=== PATIENT | male | born 1955 | race Caucasian/White ===

== ENCOUNTER 2024-10-09 12:15 | Observation (INO) | payer MEDICARE, SELFPAY ==
[2024-10-09] VITALS (10 sets, daily range): BP systolic 128–175; BP diastolic 62–95; BMI 40.6; BMI 40.5
[2024-10-09 04:01] LABS: % Basophils 0.4 % (0-2); % Eosinophils 2.5 % (0-6); % Immature Granulocytes 0.4 % (0-0.5); % Lymphocytes 18.9 % (20.5-51.1); % Monocytes 6.4 % (1.7-9.3); % Neutrophils 71.4 % (42.2-75.2); Absolute Basophils 0.1 10^3/uL (0-0.2); Absolute Eosinophils 0.4 10^3/uL (0-0.7); Absolute Immature Granulocytes 0.1 10^3/uL (0-0.05); Absolute Lymphocytes 2.7 10^3/uL (1.2-3.4); Absolute Monocytes 0.9 10^3/uL (0.1-0.6); Absolute Neutrophils 10.1 10^3/uL (1.4-6.5); Hematocrit 43.7 % (39.0-52.0); Hemoglobin 15.8 g/dL (13.0-18.0); Mean Corp Hgb Conc. 36.2 g/dL (33.0-37.0); Mean Corpuscular Volume 85.7 fL (80.0-94.0); Mean Platelet Volume 9.1 fL (7.4-10.4); Nucleated Red Blood Cells % 0 % (-); Platelet Count 298 10^3/uL (130-400); Red Cell Dist. Width 12.3 % (11.5-14.5); White Blood Cell Count 14.2 10^3/uL (4.8-10.8)
[2024-10-09 04:25] LABS: ALT (SGPT) 45 U/L (0-50); AST (SGOT) 26 U/L (17-59); Albumin 4.7 g/dl (3.5-5.0); Alkaline Phosphatase 106 U/L (38-126); Blood Urea Nitrogen 21 mg/dl (9-20); Calcium 9.8 mg/dl (8.4-10.2); Carbon Dioxide 23 mmol/L (22-30); Chloride 105 mmol/L (98-107); Glucose 198 mg/dl (70-99); Lipase 88 U/L (23-300); Potassium 4.3 mmol/L (3.5-5.1); Sodium 139 mmol/L (135-145); Total Bilirubin 0.5 mg/dl (0.2-1.3); Total Protein 7.3 g/dl (6.3-8.2); eGFR > 60.00
[2024-10-09] MEDS: DILAUDID 1 MG IV ×3 (04:57→09:38)
[2024-10-09] MEDS: ZOFRAN 4 MG IV ×2 (05:00→08:45)
--- NOTE | 2024-10-09 07:06 | ED.GENMED ---
History of Present Illness
General
Chief Complaint: Abdominal Pain
Source: patient and records
Exam Limitations: none
Time Seen by Provider: 10/09/24 06:56
History of Present Illness
History of Present Illness:
69yoM with a history of type 2 diabetes, hypertension, hyperlipidemia, GERD presenting for evaluation of abdominal pain. Patient reports having a 'twinge' of pain yesterday with a sour stomach during the day. He started having worsening pain
around 8pm. Pain is described as a severe pressure in his epigastric region. He started retching upon arrival to the ED. Pain radiates to the back. Patient believes his symptoms are from his gallbladder. He was hospitalized in June 2021 with
choledocholithiasis and underwent ERCP. Cholecystectomy was recommended at that time which he refused. Symptoms are almost identical to last time although the pain is more severe. Patient denies any chest pain, shortness of breath, diarrhea,
constipation.
Past History
Past History
ED Past Medical History: GERD, HTN and NIDDM
Social History
Tobacco: Non-smoker
Alcohol: None
Drug: None
Personal: Single
Living: alone
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
Phy Exam
Physical Exam
Physical Exam:
Writhing around on stretcher, retching, diaphoretic
General Physical Exam
General Presentation: moderate distress
General Skin: warm and diaphoretic
General Habitus: normal and obese
General Mental: alert
ENT Exam
ENT Exam: normocephalic
Cardiovascular Exam
Cardiovascular Exam: regular rate/rhythm
Pulmonary Exam
Pulmonary Exam: lungs clear, no respiratory distress, no rales, no crackles, no rhonchi and no wheezing
Gastrointestinal Exam
Gastrointestinal Exam: soft, non distended and other (+Epigastric tenderness. No rebound or guarding. )
Neurological Exam
Neurological Exam: alert
Cecilio Coma Scale
Eye Opening: Spontaneous
Verbal Response: Oriented
Motor Response: Obeys Commands
GCS Total Score: 15
Skin Exam
Skin Exam: normal color and warm/dry
Psychiatric Exam
Psychiatric Exam: anxious
Course
Orders/Labs/Results
Orders:
Orders
10/09/24 03:56
Complete Blood Count/With Diff Urgent
Comprehensive Metabolic Panel Urgent
Lipase Urgent
10/09/24 04:34
Ondansetron Injectable [Zofran] 4 mg .ROUTE .STK-MED ONE
10/09/24 04:51
HYDROmorphone [Dilaudid] 1 mg .ROUTE .STK-MED ONE
10/09/24 04:53
HYDROmorphone [Dilaudid] 1 mg IV NOW STA
10/09/24 04:54
US Abdomen Complete/Upper Urgent
Comment:
Reason For Exam: gallbladder
10/09/24 05:00
Ondansetron Injectable [Zofran] 4 mg IV NOW STA
10/09/24 07:06
Electrocardiogram (*1) Urgent
Reason for Study: Abdominal Pain
CT Chest/abd/pelvis Angio W/wo Urgent
Comment:
Reason For Exam: upper abd pain radiating to back
EKG- Treatment ONCE
10/09/24 07:12
HYDROmorphone [Dilaudid] 1 mg IV NOW STA
10/09/24 07:13
0.9% Sodium Chloride 1000 ml [Nss] 1,000 ml IV BOLUS
10/09/24 07:28
Lactate Level [Lactic Acid] Urgent
Troponin I Urgent
10/09/24 07:30
Urinalysis Reflex To Culture Urgent
Date Specimen was Collected: 10/09/24
Time Specimen was Collected: 07:28
Urine Microscopic Reflex Cult Urgent
10/09/24 08:37
Ondansetron Injectable [Zofran] 4 mg IV NOW STA
10/09/24 09:23
HYDROmorphone [Dilaudid] 1 mg IV NOW STA
Ketorolac [Toradol] 15 mg IV NOW STA
Abnormal Lab Results
10/09/24 10/09/24 10/09/24
03:56 07:28 07:30
WBC 14.2 H 10^3/uL
(4.8-10.8)
Abs Immat Gran (auto) 0.1 H 10^3/uL
(0-0.05)
Absolute Neuts (auto) 10.1 H 10^3/uL
(1.4-6.5)
Absolute Monos (auto) 0.9 H 10^3/uL
(0.1-0.6)
Lymphocytes % 18.9 L %
(20.5-51.1)
BUN 21 H mg/dl
(9-20)
Glucose 198 H mg/dl
(70-99)
Lactic Acid 3.1 H mmol/L
(0.7-2.0)
Urine Ketones 2+ A
(Negative)
Ur Occult Blood Reflex 1+ A
(Negative)
Urine Bacteria (Reflex) Few A
(Negative)
Urine Albumin (Reflex) 2+ A
(Neg - Trace)
10/09/24 03:56
10/09/24 03:56
Vital Signs
Initial and Last Documented VS:
Initial Vital Signs
Temp Pulse Resp BP Pulse Ox
98.6 F 87 18 158/95 98
10/09/24 03:49 10/09/24 03:49 10/09/24 03:49 10/09/24 03:49 10/09/24 03:49
Last Documented Vital Signs
Temp Pulse Resp BP Pulse Ox
98.6 F 74 16 159/62 96
10/09/24 03:49 10/09/24 08:29 10/09/24 08:29 10/09/24 10:00 10/09/24 10:00
MDM/Problems Addressed
Differential Diagnosis Includes:
69yoM here with epigastric abd pain that started last night. Hx of choledocholithiasis in 2021. Never followed up for a cholecystectomy. He is hypertensive with otherwise stable. Patient is writhing around on exam and diaphoretic complaining of
severe pain. Differential diagnosis includes but is not limited to: Cholecystitis, pancreatitis, PUD, gastroparesis, aortic dissection, ACS
Initial ED plan: Workup initiated by nursing staff. Patient underwent upper abdominal ultrasound which shows a solitary gallstone without signs of cholecystitis. White count is 14.2 which may be reactive secondary to vomiting. LFTs and lipase
within normal limits. Will check troponin/EKG, lactate, and CTA dissection study. IV Dilaudid for pain.
*Pulse Oximetry
SaO2: 98
Oxygen Mode of Delivery: Room air
Patient hypoxic: no (98%)
*EKG
Interpreted by ED Provider?: Yes
EKG Intrepretation Date: 10/09/24
Heart Rate: 74
Rate: normal
Rhythm: sinus
[place]: normal axis
Interval: normal interval
QRS Pattern: normal QRS
Ischemia: no ischemia
*Critical Care Note
Total Time (30-74mins, 75-104mins- exclusive of procedures): Not Applicable
Update Note
Update Note:
Lactate elevated at 3.1. CTA negative for acute findings other than cholelithiasis. EKG shows NSR without ischemic changes and troponin WNL. Patient continues to be in severe pain and requiring multiple doses of Dilaudid. Will admit for further
evaluation and management.
ED Attending Note
-
Portions of this chart may have been created with voice recognition software.� Occasional wrong word or��sound alike� substitutions may have occurred due to the inherent limitations of voice recognition software.
Discharge Plan
Departure
Patient Disposition: Admit
Date of Disposition: 10/09/24
Time of Disposition: 09:26
Presentation/result/management discussed w/ accepting MD/DO: Hospitalist
Discharge Problem:
Intractable abdominal pain
Prescriptions:
No Action
losartan 50 MG tablet
100 mg PO DAILY
metformin 500 MG tablet
500 mg PO BID@0800,1700
aspirin 81 MG tablet,delayed release (DR/EC)
81 mg PO DAILY
famotidine 20 MG tablet
40 mg PO DAILY
pantoprazole 40 MG tablet,delayed release (DR/EC)
40 mg PO DAILY
Patient Comments:
x 2 weeks then as needed- 09/16/24
prescribed
Atorvastatin
80 mg PO DAILY
amlodipine 10 mg Tablet
10 mg PO DAILY
Referrals:
Pete Bradley MD [Family Provider, Family Practice]
Interventions
Interventions:
*Risk Screen - Suicide Last Done: 10/09/24 03:49
*General Assessment Last Done: 10/09/24 03:49
*Neglect/Abuse Screening Last Done: 10/09/24 03:49
EB-Lromig-Nlvagubfeb Assessment Last Done: 10/09/24 07:54
Discharge Date and Time
Print Language: GERMAN
--- NOTE | 2024-10-09 07:12 | EDRN ---
Report to Dwight Del Cid
[2024-10-09] MEDS: NSS 1000 IV ×2 (07:29→13:40)
[2024-10-09 07:39] LABS: Urine Albumin 2+ (Neg - Trace); Urine Bilirubin Negative (Negative); Urine Character Clear (Clear); Urine Color Yellow; Urine Glucose Negative (Negative); Urine Ketone 2+ (Negative); Urine Leukocyte Negative (Negative); Urine Nitrite Negative (Negative); Urine Occult Blood 1+ (Negative); Urine Specific Gravity 1.015 (<1.030); Urine Urobilinogen Negative (Neg - 1+)
[2024-10-09 07:55] LABS: Lactic Acid 3.1 mmol/L (0.7-2.0)
[2024-10-09 07:57] LABS: Urine Bacteria Few (Negative); Urine Red Blood Cell 0-2 /HPF (0-2); Urine White Cell 0-2 /HPF (0-5)
[2024-10-09 08:09] LABS: Troponin I < 0.012 ng/ml
[2024-10-09] MEDS: TORADOL 15 MG IV ×3 (09:38→20:20)
--- NOTE | 2024-10-09 11:53 | HPS.HSE ---
Family Physician
-
Family Physician: Pete Bradley
Chief Complaint
-
Abd pain
History of Present Illness
69 yo man with a history of type 2 diabetes, hypertension, hyperlipidemia, GERD presents for evaluation of abdominal pain. He reports having a 'twinge' of pain yesterday with a sour stomach during the day. He started having worsening pain in the
evening. Pain is described as a severe pressure in his epigastric region. He started retching upon arrival to the ED. Pain radiates to the back. He believes his symptoms are from his gallbladder. He was hospitalized in June 2021 with
choledocholithiasis and underwent ERCP. Cholecystectomy was recommended at that time which he refused. He states that his symptoms are almost identical to last time, although the pain is more severe. He denies any chest pain, shortness of breath,
diarrhea, constipation. At the time of my admit, he was comfortable but had recently received dilaudid.
CT of abdomen:
The abdominal aorta is unremarkable. No abdominal aortic dissection, aneurysm, or intramural hematoma. Minimal calcified atherosclerosis.
The celiac, superior mesenteric, and inferior mesenteric arteries are patent.
The bilateral renal arteries are patent.
2.6 cm calcified gallstone in the gallbladder lumen near the neck.
Smaller gallstone in the dependent gallbladder fundus. Hepatic steatosis.
Regions of fatty sparing in the liver adjacent to the gallbladder fossa.
The bile ducts, pancreas, spleen, bilateral adrenal glands, and kidneys are unremarkable.
No hydronephrosis.
No abdominal or retroperitoneal lymphadenopathy.
No bowel wall thickening, obstruction, or inflammation.
No extraluminal free air, fluid collection, or ascites.
US of abdomen:
1. Single gallstone within the gallbladder, without evidence of acute cholecystitis.
2. Diffuse fatty infiltration of the liver. Mild hepatomegaly.
Medical History
Past Medical History
Past Medical History: Reports Other
Additional Past Medical History:
GERD,
essential benign HTN
NIDDM
Past Surgical History: Reports None
Social History
Tobacco: Non-smoker
Alcohol: None
Drug: None
Employment: Retired
Family History
Family History: Not pertinent
Allergies / Home Medications
Allergies reflects when Allergies were last updated in [facility].
Home Medications with original date entered in [facility]
Allergy/Medication List:
Allergies
Allergy/AdvReac Type Severity Reaction Status Date / Time
Penicillins Allergy Unknown Verified 10/09/24 09:48
Home Medications
aspirin 81 mg tablet,delayed release 81 mg PO DAILY Blood clot prevention/tx 07/04/21
famotidine 20 mg tablet 40 mg PO DAILY Gastrointestinal issue 07/04/21
losartan 50 mg tablet 100 mg PO DAILY Blood pressure 07/04/21
metformin 500 mg tablet 500 mg PO BID@0800,1700 Diabetes 07/04/21
pantoprazole 40 mg tablet,delayed release 40 mg PO DAILY Gastrointestinal issue 07/04/21
Atorvastatin 80 mg PO DAILY 07/25/21
amlodipine 10 mg tablet 10 mg PO DAILY 10/09/24
Review of Systems
-
History Source: Patient
A 12 point ROS was completed and negative except as noted: Yes
Abdomen/GI: Reports Abdominal Pain and Nausea
Physical Exam
Vital Signs
Vital Signs
Temp Pulse Resp BP Pulse Ox
98.6 F 74 16 159/62 96
10/09/24 03:49 10/09/24 08:29 10/09/24 08:29 10/09/24 10:00 10/09/24 10:00
Physical Exam
General: Well Developed, Well Nourished, No Apparent Distress, Comfortable and Conversant
HEENT: Nose Appears Normal and Ears Appear Normal
Respiratory: Clear
Cardiac: S1/S2 and Regular Rhythm
GI: Soft, Non Tender and Non Distended
Musculoskeletal: No Clubbing, No Cyanosis, Edema, Left Lower Extremity and Edema, Right Lower Extremity
Skin: Warm and Dry; No Rash
Neuro: Awake, Alert, Oriented and AO x 3
Psych: Calm
Laboratory Results
-
10/09/24 03:56
10/09/24 03:56
Laboratory Results
Lactic Acid 3.1 mmol/L (0.7-2.0) H 10/09/24 07:28
Total Bilirubin 0.5 mg/dl (0.2-1.3) 10/09/24 03:56
AST 26 U/L (17-59) 10/09/24 03:56
ALT 45 U/L (0-50) 10/09/24 03:56
Alkaline Phosphatase 106 U/L (38-126) 10/09/24 03:56
Troponin I < 0.012 ng/ml 10/09/24 07:28
Lipase 88 U/L (23-300) 10/09/24 03:56
Data Reviewed
-
Lab Data: Labs Reviewed by me
Impression/Plan
-
IMPRESSION:
69 man with abdominal pain and gallstones
PLAN:
1. Gallstones. Recurrent problem. No acute abdominal emergencies noted on CT.
NPO with sips of clears
Pain control
When pain improves, advance diet
IF he is otherwise recovering well, outpatient eval for GB removal
If he worsens, inpatient surgical eval
2. WBC 14.2, acute stress reaction vs infection
Follow trend
Antibiotics will not be ordered at this time given CT imaging
3. Fatty liver - follow as outpatient
4. Elevated BP - likely from pain
Follow
Full code
VCD for DVTp
[2024-10-09] MEDS: TUMS CHEWABLE TABLET 200 MG PO (21:32)
[2024-10-10] MEDS: NSS 1000 IV ×2 (00:09→09:48)
[2024-10-10] MEDS: DILAUDID 1 MG IV (00:24)
[2024-10-10 06:10] LABS: Hematocrit 39.6 % (39.0-52.0); Hemoglobin 13.8 g/dL (13.0-18.0); Mean Corp Hgb Conc. 34.8 g/dL (33.0-37.0); Mean Corpuscular Hgb 30.6 pg (27.0-31.0); Mean Corpuscular Volume 87.8 fL (80.0-94.0); Mean Platelet Volume 9.7 fL (7.4-10.4); Platelet Count 261 10^3/uL (130-400); Red Blood Cell Count 4.51 10^6/uL (4.70-6.10); Red Cell Dist. Width 12.7 % (11.5-14.5)
[2024-10-10 06:32] LABS: ALT (SGPT) 34 U/L (0-50); AST (SGOT) 19 U/L (17-59); Albumin 3.7 g/dl (3.5-5.0); Alkaline Phosphatase 82 U/L (38-126); Blood Urea Nitrogen 19 mg/dl (9-20); Carbon Dioxide 22 mmol/L (22-30); Chloride 108 mmol/L (98-107); Estimated Creatinine Clearance 85 ml/min; Glucose 140 mg/dl (70-99); Magnesium 1.7 mg/dl (1.6-2.3); Potassium 3.7 mmol/L (3.5-5.1); Sodium 138 mmol/L (135-145); Total Bilirubin 0.8 mg/dl (0.2-1.3); eGFR > 60.00
[2024-10-10 07:00] VITALS: BP 155/70
[2024-10-10] MEDS: PEPCID 40 MG PO (08:08)
[2024-10-10] MEDS: LIPITOR 80 MG PO (08:08)
[2024-10-10] MEDS: ASPIR LOW (ENTERIC COATED) 81 MG PO (08:08)
[2024-10-10] MEDS: NORVASC 10 MG PO (08:08)
[2024-10-10] MEDS: COZAAR 100 MG PO (08:08)
[2024-10-10] MEDS: PROTONIX 40 MG PO (08:08)
--- NOTE | 2024-10-10 11:24 | PTCARENOTE ---
MD at bedside, going over plan of care for pt with this RN. Reported that pt has not needed pain meds this shift and that he reports no N/V. MD requests low reside diet for lunch time this shift. Diet order entered per provider request. Will monitor
pt's status throughout and after lunch.
--- NOTE | 2024-10-10 11:30 | W.PN.HOSP.TC ---
Today's Communication/Plan
-
Discharge home if he tolerates a low residue / low fat lunch.
Low fat diet until GB is removed.
Assessment / Plan
Assessment / Plan
HPI initial presentation and Hospital admit:
69 yo man with a history of type 2 diabetes, hypertension, hyperlipidemia, GERD presents for evaluation of abdominal pain. He reports having a 'twinge' of pain yesterday with a sour stomach during the day. He started having worsening pain in the
evening. Pain is described as a severe pressure in his epigastric region. He started retching upon arrival to the ED. Pain radiates to the back. He believes his symptoms are from his gallbladder. He was hospitalized in June 2021 with
choledocholithiasis and underwent ERCP. Cholecystectomy was recommended at that time which he refused. He states that his symptoms are almost identical to last time, although the pain is more severe. He denies any chest pain, shortness of breath,
diarrhea, constipation. At the time of my admit, he was comfortable but had recently received dilaudid.
CT of abdomen:
The abdominal aorta is unremarkable. No abdominal aortic dissection, aneurysm, or intramural hematoma. Minimal calcified atherosclerosis.
The celiac, superior mesenteric, and inferior mesenteric arteries are patent.
The bilateral renal arteries are patent.
2.6 cm calcified gallstone in the gallbladder lumen near the neck.
Smaller gallstone in the dependent gallbladder fundus. Hepatic steatosis.
Regions of fatty sparing in the liver adjacent to the gallbladder fossa.
The bile ducts, pancreas, spleen, bilateral adrenal glands, and kidneys are unremarkable.
No hydronephrosis.
No abdominal or retroperitoneal lymphadenopathy.
No bowel wall thickening, obstruction, or inflammation.
No extraluminal free air, fluid collection, or ascites.
US of abdomen:
1. Single gallstone within the gallbladder, without evidence of acute cholecystitis.
2. Diffuse fatty infiltration of the liver. Mild hepatomegaly.
Admit diagnosis:
Pain control s/p probable passage of gallstone
Hospital course by problem:
1. Gallstones. Recurrent problem. No acute abdominal emergencies noted on CT.
Tolerated advancement of diet
Pain control achieved
he is otherwise recovering well, outpatient eval for GB removal recommended
2. WBC 14.2, acute stress reaction vs infection. Worse today, but no other signs of infection
Antibiotics will not be ordered at this time given CT imaging
Will recommend a CBC in two days and follow up as soon as possible with PCP to set up surgery
3. Fatty liver/enlarged liver - follow as outpatient
Urgent weight loss needed
4. Elevated BP - chronic issue. likely from pain
He takes amlodipine as outpatient, likely has benign essential HTN
Follow up with PCP after discharge
5. NIDDM - resume metformin at discharge
Urgent weight loss needed
Anticipated Discharge: Today
Subjective/Interval History
-
Date of Service: October 10, 2024
Feels better, no more pain meds needed today.
Objective Data
-
Labs:
Laboratory Results
10/10/24
04:18
WBC 17.0 H
Hgb 13.8
Hct 39.6
Plt Count 261
Sodium 138
Potassium 3.7
Chloride 108 H
Carbon Dioxide 22
BUN 19
Creatinine 1.0
Glucose 140 H
Calcium 8.0 L D
Total Bilirubin 0.8
AST 19
ALT 34
Alkaline Phosphatase 82
Vital Signs:
Vital Signs
Temp Pulse Resp BP Pulse Ox
100.2 F 82 17 155/70 94
10/10/24 07:00 10/10/24 08:08 10/10/24 07:00 10/10/24 08:08 10/10/24 07:00
I&O
10/09/24 10/10/24 10/11/24
06:59 06:59 06:59
Intake Total 500 / 500
Balance 500 / 500
Review of Systems
-
History Source: Patient
All other systems: Reviewed and negative
Physical Exam
-
General: Well Developed, Well Nourished, No Apparent Distress, Comfortable and Morbidly Obese
HEENT: Normocephalic, Atraumatic, Moist Mucous Membranes, Nose Appears Normal and Ears Appear Normal
Respiratory: Clear to Auscultation
Cardiac: Regular Rhythm and S1/S2
GI: Soft, Nontender and Nondistended
Skin: Warm and Dry; Negative Rash
Neuro: Awake, Alert and Oriented
Psych: Calm
Data Reviewed
-
Labs: Labs Reviewed by me
--- NOTE | 2024-10-10 11:39 | W.DCSUMMARY ---
Discharge Summary
Discharge Data
Date of Admission: 10/09/24
Date of Discharge: 10/10/24
Total time spent discharging patient (in min): 51
-
Pending Results: No
Hospital Course
HPI initial presentation and Hospital admit:
69 yo man with a history of type 2 diabetes, hypertension, hyperlipidemia, GERD presents for evaluation of abdominal pain. He reports having a 'twinge' of pain yesterday with a sour stomach during the day. He started having worsening pain in the
evening. Pain is described as a severe pressure in his epigastric region. He started retching upon arrival to the ED. Pain radiates to the back. He believes his symptoms are from his gallbladder. He was hospitalized in June 2021 with
choledocholithiasis and underwent ERCP. Cholecystectomy was recommended at that time which he refused. He states that his symptoms are almost identical to last time, although the pain is more severe. He denies any chest pain, shortness of breath,
diarrhea, constipation. At the time of my admit, he was comfortable but had recently received dilaudid.
CT of abdomen:
The abdominal aorta is unremarkable. No abdominal aortic dissection, aneurysm, or intramural hematoma. Minimal calcified atherosclerosis.
The celiac, superior mesenteric, and inferior mesenteric arteries are patent.
The bilateral renal arteries are patent.
2.6 cm calcified gallstone in the gallbladder lumen near the neck.
Smaller gallstone in the dependent gallbladder fundus. Hepatic steatosis.
Regions of fatty sparing in the liver adjacent to the gallbladder fossa.
The bile ducts, pancreas, spleen, bilateral adrenal glands, and kidneys are unremarkable.
No hydronephrosis.
No abdominal or retroperitoneal lymphadenopathy.
No bowel wall thickening, obstruction, or inflammation.
No extraluminal free air, fluid collection, or ascites.
US of abdomen:
1. Single gallstone within the gallbladder, without evidence of acute cholecystitis.
2. Diffuse fatty infiltration of the liver. Mild hepatomegaly.
Admit diagnosis:
Pain control s/p probable passage of gallstone
Hospital course by problem:
1. Gallstones. Recurrent problem. No acute abdominal emergencies noted on CT.
Tolerated advancement of diet
Pain control achieved
he is otherwise recovering well, outpatient eval for GB removal recommended
2. WBC 14.2, acute stress reaction vs infection. Worse today, but no other signs of infection
Antibiotics will not be ordered at this time given CT imaging
Will recommend a CBC in two days and follow up as soon as possible with PCP to set up surgery
3. Fatty liver/enlarged liver - follow as outpatient
Urgent weight loss needed
4. Elevated BP - chronic issue. likely from pain
He takes amlodipine as outpatient, likely has benign essential HTN
Follow up with PCP after discharge
5. NIDDM - resume metformin at discharge
Urgent weight loss needed
Discharge Plan
-
Patient Disposition: Home (Routine Discharge)
Discharge Diagnosis/Procedures: Gallstones
Diet: Low Fat and Low Residue
Activity: As tolerated
Driving Restrictions: As prior to admission
Bathing Restrictions: None
Blood Work: CBC on 10/12/24 - results to be sent to PCP
Others Tests: PCP to coordinate outpatient surgical consult for gall bladder removal
Referrals:
Pete Bradley MD [Family Provider, [facility]]
Prescriptions:
Continued
losartan 50 MG tablet
100 mg PO DAILY
metformin 500 MG tablet
500 mg PO DAILY
aspirin 81 MG tablet,delayed release (DR/EC)
81 mg PO DAILY
famotidine 20 MG tablet
40 mg PO DAILY
pantoprazole 40 MG tablet,delayed release (DR/EC)
40 mg PO DAILY
atorvastatin [Lipitor] 80 mg Tablet
80 mg PO DAILY
amlodipine 10 mg Tablet
10 mg PO DAILY
therapeutic multivitamin Tablet
1 tab PO DAILY
Discharge Orders:
Discharge Patient (As Directed); Ordered 10/10/24
Ordered By: Nima Valenzuela
Discharge Date and Time
Print Language: URDU
--- NOTE | 2024-10-10 12:56 | CM ---
Patient seen at bedside
IA completed
[facility] form explained & signed. In chart
Lives alone in a 2 story home, states a friend stays 5 days a week with him, [address], 12 steps to bed/bath
PLOF: Independent, drives
Denies DME
Denies VN/Rehab
PCP: Pete Bradley
Pharmacy: [address], [place]
PLAN: home, no needs
drove self to hospital
[2024-10-10 13:07] VITALS: BP 150/79
== END 2024-10-10 14:01 | disposition home or self-care (01) ==
LOC: 3 WEST ACU 12:15
PROVIDERS: Emergency Medicine; Physician Assistant; ADMITTING PHYSICIAN Internal Medicine; EMERGENCY PHYSICIAN Emergency Medicine; FAMILY PHYSICIAN Family Medicine
DX: K80.20 Calculus of gallbladder without cholecystitis without obstruction (principal); R10.9 Unspecified abdominal pain; E11.9 Type 2 diabetes mellitus without complications; I10 Essential (primary) hypertension; E78.5 Hyperlipidemia, unspecified; K21.9 Gastro-esophageal reflux disease without esophagitis; R11.2 Nausea with vomiting, unspecified; D72.829 Elevated white blood cell count, unspecified; R61 Generalized hyperhidrosis; I70.90 Unspecified atherosclerosis; K76.0 Fatty (change of) liver, not elsewhere classified; R16.0 Hepatomegaly, not elsewhere classified; Z79.82 Long term (current) use of aspirin; Z79.84 Long term (current) use of oral hypoglycemic drugs; Z88.0 Allergy status to penicillin; Z79.899 Other long term (current) drug therapy; Z60.2 Problems related to living alone
CPT/HCPCS: 71275; 74174; 76700; 80053; 81003; 81015; 83605; 83690; 83735; 84484; 85025; 85027; 93005; 96361; 96374; 96375; 96376; 99285; G0378; Q9967

== ENCOUNTER → 2024-10-14 13:58 | Outpatient (REF) | payer MEDICARE, SELFPAY ==
[2024-10-14 15:23] LABS: Hematocrit 40.2 % (39.0-52.0); Hemoglobin 14.3 g/dL (13.0-18.0); Mean Corp Hgb Conc. 35.6 g/dL (33.0-37.0); Mean Corpuscular Volume 86.6 fL (80.0-94.0); Platelet Count 302 10^3/uL (130-400); Red Cell Dist. Width 12.8 % (11.5-14.5)
[2024-10-14 15:48] LABS: Nucleated Red Blood Cells % 0 % (-)
== END ==
LOC: REG 13:58
PROVIDERS: ATTENDING PHYSICIAN Internal Medicine; FAMILY PHYSICIAN Family Medicine
DX: Z09 Encounter for follow-up examination after completed treatment for conditions other than malignant neoplasm (principal); R10.9 Unspecified abdominal pain
CPT/HCPCS: 36415; 85025

== ENCOUNTER 2024-10-15 04:34 | Emergency (ER) | payer MEDICARE, SELFPAY ==
[2024-10-15 04:38] VITALS: BP 109/61
[2024-10-15 05:58] VITALS: BMI 38.8
[2024-10-15 06:13] LABS: Hematocrit 37.7 % (39.0-52.0); Hemoglobin 13.6 g/dL (13.0-18.0); Mean Corp Hgb Conc. 36.1 g/dL (33.0-37.0); Mean Corpuscular Volume 84.3 fL (80.0-94.0); Nucleated Red Blood Cells % 0 % (-); Platelet Count 238 10^3/uL (130-400); Red Cell Dist. Width 12.9 % (11.5-14.5)
[2024-10-15 06:36] LABS: ALT (SGPT) 192 U/L (0-50); AST (SGOT) 189 U/L (17-59); Albumin 3.2 g/dl (3.5-5.0); Alkaline Phosphatase 211 U/L (38-126); Blood Urea Nitrogen 34 mg/dl (9-20); Calcium 8.6 mg/dl (8.4-10.2); Carbon Dioxide 23 mmol/L (22-30); Chloride 104 mmol/L (98-107); Estimated Creatinine Clearance 44 ml/min; Glucose 126 mg/dl (70-99); Potassium 3.1 mmol/L (3.5-5.1); Sodium 136 mmol/L (135-145); Total Protein 5.7 g/dl (6.3-8.2); eGFR 38.19
[2024-10-15 07:04] LABS: Lipase 32 U/L (23-300)
[2024-10-15] MEDS: ZOSYN 50 IV (07:16)
--- NOTE | 2024-10-15 07:24 | ED.GENMED ---
Addendum entered and electronically signed by Alvino Mae PA-C 10/18/24 10:33:
Called pt again regarding positive blood culture, no answer
Addendum entered and electronically signed by Alvino Mae PA-C 10/16/24 16:09:
Left message for patient regarding positive blood culture
Original Note:
History of Present Illness
General
Chief Complaint: Fever
Source: patient, records, previous radiology exam and previous hospital records
Exam Limitations: none
Time Seen by Provider: 10/15/24 06:07
History of Present Illness
History of Present Illness:
69-year-old male 3 days of fever and shaking chills known gallstones seen here a week or so ago with pain that improved discharged to home to follow-up with the surgeon states he had some upper abdominal pain which is manageable with pain meds last
3 nights he is had chills, night sweats headache
Past History
Past History
ED Past Medical History: GERD, HTN and NIDDM
ED Past Surgical History: Other (Sounds like that ERCP); Negative Cholecystectomy
Social History
Tobacco: Non-smoker
Alcohol: None
Drug: None
Personal: Single
Living: alone
Employment: Employed (Is a research programmer)
Review of Systems
Review of Systems
All Other Systems: Not applicable
Constitutional: Reports fever and chills
EENT: Reports no symptoms
Respiratory: Reports no symptoms
ABD/GI: Reports abdominal pain and nausea
Neurological: Reports weakness
Endocrine: Reports no symptoms
Phy Exam
Physical Exam
Physical Exam:
Physical Exam
General: 69 male no acute distress
Neck: Lips are more
Heart: Tachy
Lungs: no acute respiratory distress. clear bilaterally
Abdomen: Obese mild epigastric
Neuro: alert and oriented. no focal neurological deficits
Skin: no rash
Psychiatric: Cooperative
Extremities: no edema.
Sepsis
Sepsis Screening
Sepsis Assessment: Sepsis
Sepsis Screen
Sepsis Screen: Sepsis
Date: 10/15/24
Time: 13:08
Course
Orders/Labs/Results
Orders:
Orders
10/15/24 05:53
CBC/With Diff [Complete Blood Count/With Diff] Urgent
CMP [Comprehensive Metabolic Panel] Urgent
Lipase Urgent
Comment: ADD ON
Lyme Progressive Urgent
10/15/24 05:59
Blood Culture Urgent
KHANG Source: Blood/Venous
Specimen Description:
10/15/24 06:49
Add On- LAB Urgent
Tests Added?: lipase
10/15/24 06:50
Piperacillin/Tazo 3.375 Gram [Zosyn] 3.375 gram in 50 ml IV NOW
10/15/24 07:12
0.9% Sodium Chloride 1000 ml [Nss] 2,000 ml IV BOLUS
10/15/24 07:26
Potassium Chloride [KCl] 40 meq 0.9% Sodium Chloride 250 ml [Nss] 250 ml IV NOW
10/15/24 08:00
Flush (0.9% Sodium Chloride) [Flush (Nss)] See Dose Instructions IV PER PROTOCOL
Abnormal Lab Results
10/15/24
05:53
WBC 15.4 H 10^3/uL
(4.8-10.8)
RBC 4.47 L 10^6/uL
(4.70-6.10)
Hct 37.7 L %
(39.0-52.0)
Abs Immat Gran (auto) 0.1 H 10^3/uL
(0-0.05)
Absolute Neuts (auto) 14.4 H 10^3/uL
(1.4-6.5)
Absolute Lymphs (auto) 0.3 L 10^3/uL
(1.2-3.4)
Immature Gran % 0.8 H %
(0-0.5)
Neutrophils % 93.8 H %
(42.2-75.2)
Lymphocytes % 2.0 L %
(20.5-51.1)
Potassium 3.1 L mmol/L
(3.5-5.1)
BUN 34 H mg/dl
(9-20)
Creatinine 1.9 H mg/dL
(0.7-1.3)
Glucose 126 H mg/dl
(70-99)
Total Bilirubin 1.5 H mg/dl
(0.2-1.3)
AST 189 H U/L
(17-59)
ALT 192 H U/L
(0-50)
Alkaline Phosphatase 211 H U/L
(38-126)
Total Protein 5.7 L g/dl
(6.3-8.2)
Albumin 3.2 L g/dl
(3.5-5.0)
10/15/24 05:53
10/15/24 05:53
Vital Signs
Initial and Last Documented VS:
Initial Vital Signs
Temp Pulse Resp BP Pulse Ox
100.3 F 124 28 109/61 96
10/15/24 04:38 10/15/24 04:38 10/15/24 04:38 10/15/24 04:38 10/15/24 04:38
Last Documented Vital Signs
Temp Pulse Resp BP Pulse Ox
97.8 F 96 28 117/62 96
10/15/24 07:15 10/15/24 07:52 10/15/24 04:38 10/15/24 07:52 10/15/24 07:52
MDM/Problems Addressed
Differential Diagnosis Includes:
Cholangitis choledocholithiasis cholecystitis bacteremia sepsis
MDM/Problems Addressed:
Fever chills abdominal pain
Chronic conditions affecting care: DM, HTN and Previous abdomnial surgery
Acute Exacerbation and/or Progression of Chronic Illness: DM, HTN and Previous abdomnial surgery
*Pulse Oximetry
SaO2: 96
Oxygen Mode of Delivery: Room air
Patient hypoxic: no
*Critical Care Note
Total Time (30-74mins, 75-104mins- exclusive of procedures): Not Applicable
Update Note
Update Note:
7:30 AM update patient would like to be discharged had a long conversation where I was 100% clear that I recommended admission to the hospital for bacteremia sepsis-I was clear with him that his decision could result in loss of lifestyle, renal
failure, liver failure, including
Patient is leaving AGAINST MEDICAL ADVICE
ED Attending Note
-
Portions of this chart may have been created with voice recognition software.� Occasional wrong word or��sound alike� substitutions may have occurred due to the inherent limitations of voice recognition software.
Discharge Plan
Departure
Patient Disposition: Against Medical Advice
Date of Disposition: 10/15/24
Time of Disposition: 07:31
Condition: Serious
Discharge Problem:
Bacteremia
Instructions: Sepsis in adults
Prescriptions:
No Action
losartan 50 MG tablet
100 mg PO DAILY
metformin 500 MG tablet
500 mg PO DAILY
aspirin 81 MG tablet,delayed release (DR/EC)
81 mg PO DAILY
famotidine 20 MG tablet
40 mg PO DAILY
pantoprazole 40 MG tablet,delayed release (DR/EC)
40 mg PO DAILY
atorvastatin [Lipitor] 80 mg Tablet
80 mg PO DAILY
amlodipine 10 mg Tablet
10 mg PO DAILY
therapeutic multivitamin Tablet
1 tab PO DAILY
Referrals:
Pete Bradley MD [Family Provider, Family Practice]
Activity Restrictions/Additional Instructions:
You are welcome to return to the ER at anytime for evaluation
Interventions
Interventions:
*Risk Screen - Suicide Last Done: 10/15/24 04:38
*General Assessment Last Done: 10/15/24 04:38
*Neglect/Abuse Screening Last Done: 10/15/24 04:38
*ED- Fall Risk Assessment Last Done: 10/15/24 04:38
*ED COVID-19 Vaccine History Last Done: 10/15/24 04:38
*Nursing Disposition Last Done: 10/15/24 07:53
ED- Neurological Assessment Last Done: 10/15/24 06:50
ED-Skin Assessment Last Done: 10/15/24 06:50
Discharge Date and Time
Discharge Date/Time: 10/15/24 07:55
Print Language: MARTINIQUAIS
[2024-10-15 07:52] VITALS: BP 117/62
--- NOTE | 2024-10-15 07:56 | EDRN ---
Patient left AMA. AMA paperwork signed. Dr. Dudley and this RN explained multiple times why patient should stay in the hospital. Patient left with a steady gait.
[2024-10-18 13:59] LABS: Lyme Antibody Screen, EIA Negative (Negative)
--- NOTE | 2024-10-19 10:45 | ED.ADDNOTE ---
ED Addendum
ED Addendum
ED Addendum Note:
I spoke with the patient this morning regarding his E. coli positive blood cultures. Patient still having some fevers. Recommend he come back for admission, patient verbalized understanding
== END 2024-10-15 07:55 | disposition left against medical advice (07) ==
LOC: EMR 04:34
PROVIDERS: Student in an Organized Health Care Education/Training Program; EMERGENCY PHYSICIAN Emergency Medicine; FAMILY PHYSICIAN Family Medicine
DX: R78.81 Bacteremia (principal); E11.9 Type 2 diabetes mellitus without complications; I10 Essential (primary) hypertension
CPT/HCPCS: 96365; 99284; 80053; 83690; 85025; 86618; 87040; 87077; 87154; 87186; 87205

== ENCOUNTER → 2024-11-02 10:53 | Outpatient (REF) | payer MEDICARE, SELFPAY ==
[2024-11-02 11:42] LABS: Hematocrit 38.6 % (39.0-52.0); Hemoglobin 13.0 g/dL (13.0-18.0); Mean Corp Hgb Conc. 33.7 g/dL (33.0-37.0); Mean Corpuscular Volume 88.9 fL (80.0-94.0); Nucleated Red Blood Cells % 0 % (-); Platelet Count 355 10^3/uL (130-400); Red Cell Dist. Width 13.0 % (11.5-14.5)
[2024-11-02 12:02] LABS: Glycohemoglobin (HgbA1c) 6.9 % (4.0-5.6)
[2024-11-02 12:11] LABS: ALT (SGPT) 54 U/L (0-50); AST (SGOT) 35 U/L (17-59); Albumin 4.0 g/dl (3.5-5.0); Alkaline Phosphatase 87 U/L (38-126); Blood Urea Nitrogen 26 mg/dl (9-20); Calcium 9.2 mg/dl (8.4-10.2); Carbon Dioxide 26 mmol/L (22-30); Chloride 106 mmol/L (98-107); Glucose 113 mg/dl (70-99); HDL Cholesterol 38 mg/dl; LDL Cholesterol, Calculated 46 mg/dl; Potassium 3.9 mmol/L (3.5-5.1); Sodium 138 mmol/L (135-145); Total Protein 6.6 g/dl (6.3-8.2); Very Low Density Lipoprotein 23 mg/dl (0-30); eGFR > 60.00
== END ==
LOC: REG 10:53
PROVIDERS: ATTENDING PHYSICIAN Family Medicine; FAMILY PHYSICIAN Surgery
DX: K80.50 Calculus of bile duct without cholangitis or cholecystitis without obstruction (principal); E11.21 Type 2 diabetes mellitus with diabetic nephropathy; E11.59 Type 2 diabetes mellitus with other circulatory complications; I10 Essential (primary) hypertension; R78.81 Bacteremia; E78.2 Mixed hyperlipidemia
CPT/HCPCS: 36415; 80053; 80061; 82248; 83036; 85025; 87040

== ENCOUNTER → 2024-11-10 12:40 | Outpatient (REF) | payer MEDICARE, SELFPAY | LOC: SDSPAT 12:40 | PROVIDERS: ATTENDING PHYSICIAN Surgery; FAMILY PHYSICIAN Family Medicine | DX: K80.50 Calculus of bile duct without cholangitis or cholecystitis without obstruction (principal) | CPT/HCPCS: 93005 ==

== ENCOUNTER 2024-11-23 06:16 | Day surgery (SDC) | payer MEDICARE, SELFPAY ==
[2024-11-10 14:00] VITALS: BMI 34.8
[2024-11-23] VITALS (10 sets, daily range): BP systolic 137–152; BP diastolic 66–80; BMI 34.8
[2024-11-23 08:29] LABS: Glucose - Point of Care 128 mg/dl (70-99)
[2024-11-23] MEDS: IC GREEN 2.5 MG IV (08:34)
[2024-11-23] MEDS: HEPARIN 5000 UNITS SC (08:37)
[2024-11-23] MEDS: TYLENOL 1000 MG PO (08:37)
[2024-11-23] MEDS: NORMOSOL-R/PLASMALYTE-A 1000 IV (08:40)
--- NOTE | 2024-11-23 10:55 | W.IMMPOSTOP ---
Surgical Immed Post Op Note
-
Primary Surgeon: Eulalia
Assisting: Kishna YATES
Pre-op Diagnosis: Chronic cholecystis
Post-op Diagnosis: Same
Procedure Performed: Robot assisted laparoscopic cholecystectomy
Anesthesia Type: GETA
Specimen / Cultures: Gallbladder
Estimated Blood Loss: 50cc
Complications: None immediate
Operative Findings: Gallbladder encased in fatty omentum, severe wall thickening and surrounding fibrosis, scant yellow pus encountered, wall broke down during dissection with spillage of stones, irrigated and retrieved; addiitonal 5mm trocar
occupational therapy assistant port placed to aid visualization and facilitate suction/irrigation
--- NOTE | 2024-11-23 10:57 | OR.RPT ---
Operative Report
Operative Report
Primary Surgeon: Eulalia
Assisting: Kishan YATES
Pre-op Diagnosis: Chronic cholecystis
Post-op Diagnosis: Same
Procedure Performed: Robot assisted laparoscopic cholecystectomy; Intraoperative near-infrared fluorescence imaging of major extra-hepatic bile ducts
Anesthesia Type: GETA
Specimen / Cultures: Gallbladder
Estimated Blood Loss: 50cc
Complications: None immediate
Operative Findings: Gallbladder encased in fatty omentum, severe wall thickening and surrounding fibrosis, scant yellow pus encountered, wall broke down during dissection with spillage of stones, irrigated and retrieved; addiitonal 5mm trocar
licensed occupational therapy assistant port placed to aid visualization and facilitate suction/irrigation
Date of Surgery: 11/23/24
Indications: This 69M developed right upper quadrant/epigastric pain and on workup was found to have cholelithiasis. He had a known history of choledocholithiasis 3 years ago and underwent ERCP but deferred surgery at that time due to personal
obligations. Recent liver function studies were unremarkable except an isolated mildly elevated ALT. Laparoscopic cholecystectomy with robotic assist was elected.
Description of procedure: The patient was placed on the operating table in the supine position. General anesthesia was induced. A time-out was completed verifying correct patient, procedure, site, positioning, and special equipment prior to
beginning this procedure. An orogastric tube was placed. The abdomen was prepped and draped in the usual sterile fashion. A stab incision was made in left upper quadrant and the Veress needle was inserted. Proper position was confirmed by aspiration
and saline meniscus test. The abdomen was insufflated with carbon dioxide to a pressure of 12 mmHg. The patient tolerated insufflation well.
An 8mm optical trocar was then inserted in the left upper quadrant. The laparoscope was inserted and the abdomen inspected. No injuries from initial trocar placement or Veress needle insertion were noted. Additional 8mm trocars were then inserted in
the following locations: above the umbilicus, right mid axillary line at the level of the umbilicus and 6cm lateral to this on the right. The abdomen was inspected and no abnormalities were found. The table was placed in the reverse Trendelenburg
position with the right side up. The gallbladder was encased in fatty omentum. This was carefully taken down layer by layer until the gallbladder fundus was exposed. The dome of the gallbladder was grasped with an atraumatic grasper and retracted
over the dome of the liver. The infundibulum was also grasped with an atraumatic grasper and retracted toward the right lower quadrant. Dense omental adhesions to the fundus and infundibulum were taken down. This maneuver exposed Calot�s triangle.
The tissue around the triangle was dense and fibrotic. The peritoneum overlying the gallbladder infundibulum was then incised and the cystic duct and cystic artery identified and circumferentially dissected so that a clear view of the liver was
achieved through a window between the cystic duct an cystic artery. Bleeding from the cystic artery was encountered and controlled with direct pressure and bipolar cautery. At this time, the only two structures going into the gallbladder were the
cystic artery and cystic duct. ICG was used to visualize the cystic and common ducts and the common duct was protected.
The cystic duct was then doubly clipped and divided and the and cystic artery was controlled with bipolar and divided. Both structures were taken close to the gallbladder. The gallbladder wall broke down during this part of the dissection and bile
and stones spilled. The area was irrigated and suctioned clear and all stones were retrieved. The gallbladder was then dissected from its peritoneal attachments by electrocautery. Hemostasis was assured and the gallbladder and contained stones were
removed using an endoscopic retrieval bag placed through the umbilical port. The gallbladder was passed off the table as a specimen. The gallbladder fossa was irrigated with copious sterile saline and hemostasis was assured. There was no evidence of
bleeding from the gallbladder fossa or cystic artery or leakage of the bile from the cystic duct stump. The umbilical trocar site was closed at the fascial level laparoscopically with 2-0 PDS. Secondary trocars were removed under direct vision and
noted to be hemostatic. The laparoscope was withdrawn and the umbilical trocar removed. The abdomen was allowed to collapse. The skin was closed with subcuticular sutures of 4-0 monocryl and topical skin adhesive. The orogastric tube was removed.
The patient tolerated the procedure well and was taken to the postanesthesia care unit in stable condition.
[2024-11-23 11:24] LABS: Glucose - Point of Care 160 mg/dl (70-99)
== END 2024-11-23 13:30 | disposition home or self-care (01) ==
LOC: SDS 06:16
PROVIDERS: ATTENDING PHYSICIAN Surgery; FAMILY PHYSICIAN Chiropractor
DX: K81.2 Acute cholecystitis with chronic cholecystitis (principal)
CPT/HCPCS: 47562; 82962; 88304